=== PATIENT | male | born 1940 | race Caucasian/White ===

== ENCOUNTER → 2016-11-18 | Outpatient (CLI) | payer MEDICARE, BC | LOC: LAB.O 10:54 | PROVIDERS: ATTEND Internal Medicine Infectious Disease | DX: M47.12 Other spondylosis with myelopathy, cervical region (principal); M47.16 Other spondylosis with myelopathy, lumbar region ==

== ENCOUNTER → 2016-11-22 | Outpatient (CLI) | payer MEDICARE, BC | END | disposition home or self-care (01) | LOC: GMAL 11:43 | PROVIDERS: ATTEND Family Medicine | DX: M47.819 Spondylosis without myelopathy or radiculopathy, site unspecified (principal) ==

== ENCOUNTER → 2016-11-25 | Outpatient (CLI) | payer MEDICARE, BC | LOC: GMAL 14:33 | PROVIDERS: ATTEND Family Medicine | DX: M47.819 Spondylosis without myelopathy or radiculopathy, site unspecified (principal) ==

== ENCOUNTER → 2017-01-19 | Outpatient (CLI) | payer MEDICARE, BC | LOC: GMAL 16:46 | PROVIDERS: ATTEND Family Medicine | DX: Z12.5 Encounter for screening for malignant neoplasm of prostate (principal) ==

== ENCOUNTER → 2017-05-17 | Outpatient (CLI) | payer MEDICARE, BC | END | disposition home or self-care (01) | LOC: GMAL 14:36 | PROVIDERS: ATTEND Family Medicine | DX: R30.0 Dysuria (principal); Z01.818 Encounter for other preprocedural examination; R23.3 Spontaneous ecchymoses ==

== ENCOUNTER → 2017-11-07 | Outpatient (CLI) | payer MEDICARE, BC | END | disposition home or self-care (01) | LOC: GMAL 14:13 | PROVIDERS: ATTEND Family Medicine | DX: E53.8 Deficiency of other specified B group vitamins (principal); I10 Essential (primary) hypertension; E55.9 Vitamin D deficiency, unspecified ==

== ENCOUNTER → 2017-11-09 | Outpatient (CLI) | payer MEDICARE, BC | LOC: GMAL 16:42 | PROVIDERS: ATTEND Family Medicine | DX: I50.9 Heart failure, unspecified (principal); D72.829 Elevated white blood cell count, unspecified; Z79.899 Other long term (current) drug therapy ==

== ENCOUNTER → 2018-04-25 | Outpatient (CLI) | payer MEDICARE, BC | LOC: GMAL 15:09 | PROVIDERS: ATTEND Family Medicine | DX: Z12.5 Encounter for screening for malignant neoplasm of prostate (principal) ==

== ENCOUNTER → 2019-02-21 | Outpatient (CLI) | payer MEDICARE, BC ==
--- NOTE | 2019-02-21 14:36 | CT ---
EXAM DESCRIPTION: Abdoment/Pelvis w/o Contrast CLINICAL HISTORY: 78 years, Male, CHRONIC KIDNEY DISEASE. COMPARISON: CT abdomen and pelvis 06/10/2015. TECHNIQUE: CT of the abdomen and pelvis is performed according to our non contrast protocol. FINDINGS: Reticular thickening and mild bronchiectasis within the bilateral lung bases with dependent atelectasis. Liver, spleen, and pancreas are normal in size and contour. Left hepatic lobe subcentimeter hypodensity is too small to further characterize, displaces statistically a cyst. Mild bilateral renal cortical thinning and chronic perinephric fat stranding. No hydronephrosis or ureteral nephrosis. No urinary tract calculi or perirenal collection. There is no lymphadenopathy, inflammation, or free fluid observed. Moderate atherosclerotic disease affects the aorta and its branches. Right anterior iliac bone defect likely related to prior bone marrow harvest site. Prior L4-L5 laminectomy with posterior hardware fixation. Grade 2 anterolisthesis of L4 on L5 is unchanged. Chronic L3 superior endplate depression. No acute osseous abnormality. IMPRESSION: 1. No acute intra-abdominal/pelvic process is seen on CT. 2. Mild bilateral renal cortical thinning. No hydronephrosis or urinary tract calculi. 3. Mild diverticulosis. This exam was performed according to our departmental dose-optimization program, which includes automated exposure control, adjustment of the mA and/or kV according to patient size and/or use of iterative reconstruction technique. Electronically signed by: Regis Remy DO 02/21/2019 2:34 PM CDT
== END ==
LOC: CT 13:44
PROVIDERS: ATTEND Internal Medicine Nephrology
DX: N18.4 Chronic kidney disease, stage 4 (severe) (principal); K57.90 Diverticulosis of intestine, part unspecified, without perforation or abscess without bleeding

== ENCOUNTER → 2019-09-11 | Outpatient (CLI) | payer MEDICARE, BC | LOC: GMAL 14:19 | PROVIDERS: ATTEND Family Medicine | DX: D64.9 Anemia, unspecified (principal); E08.21 Diabetes mellitus due to underlying condition with diabetic nephropathy; I10 Essential (primary) hypertension; E78.2 Mixed hyperlipidemia; E03.9 Hypothyroidism, unspecified ==

== ENCOUNTER → 2020-02-13 | Outpatient (CLI) | payer MEDICARE, BC | LOC: GMAL 16:54 | PROVIDERS: ATTEND Family Medicine | DX: E53.8 Deficiency of other specified B group vitamins (principal); Z12.5 Encounter for screening for malignant neoplasm of prostate; E03.9 Hypothyroidism, unspecified; E55.9 Vitamin D deficiency, unspecified; E08.21 Diabetes mellitus due to underlying condition with diabetic nephropathy; E78.2 Mixed hyperlipidemia; Z79.899 Other long term (current) drug therapy | CPT/HCPCS: 82306; 82607; 84439; 84443; 84481; G0103 ==